=== PATIENT | male | born 1950 ===

== ENCOUNTER 2022-07-17 10:08 | Outpatient (REF) | payer MEDICARE, SELFPAY ==
[2022-07-17 17:06] LABS: Urine Cytology See Pathology rpt
== END 2022-07-17 10:09 | disposition home or self-care (01) ==
LOC: HO.LAB 10:08
PROVIDERS: PCP Internal Medicine; Visit Provider Urology
DX: R31.29 Other microscopic hematuria (principal); R97.20 Elevated prostate specific antigen [PSA]; N40.1 Benign prostatic hyperplasia with lower urinary tract symptoms
CPT/HCPCS: 88112; 99202